=== PATIENT | male | born 1930 | race Caucasian/White ===

== ENCOUNTER 2017-03-03 09:34 | Inpatient (IN) | payer OTHER ==
[~2017-03-03] VITALS: Ht 175.3 cm; Wt 90.0 kg
[2017-03-03 11:03] LABS: HEMATOCRIT 38.1 % (38.0-50.0); MCH 30.7 PG (29.0-34.0); MCHC 33.6 G/DL (30.0-36.0); MCV 91.4 FL (86-99); MEAN PLAT.VOLUME 11.4 uM^3 (9.0-12.4); PLATELET COUNT 196 K/uL (156-360); RBC DIS.WIDTH-CV 13.3 % (11.8-14.6); RBC DIS.WIDTH-SD 45.1 % (39-53); RED BLOOD COUNT 4.17 M/uL (4.00-5.50); WHITE BLOOD COUNT 6.8 K/uL (4.1-10.2)
[2017-03-03 11:14] LABS: CHLORIDE 100 mEq/L (99-109); POTASSIUM 4.4 mEq/L (3.7-5.4); SODIUM 133 mEq/L (136-147)
[2017-03-03 11:16] LABS: GLUCOSE 103 mg/dL (70-99)
[2017-03-03 11:17] LABS: ANION GAP 12 MEQ/L (2-14)
[2017-03-03 11:20] LABS: GFR ESTIMATE (CALCULATED) > 59 mL/min/
[2017-03-03 11:21] LABS: UREA NITROGEN (BUN) 26 mg/dL (9-23)
[2017-03-03 11:24] LABS: TROP-I INTERPRETATION NEGATIVE; TROPONIN-I 0.03 ng/mL (0.0-0.30)
[2017-03-03 13:04] LABS: CARBON DIOXIDE (BICARBONATE) 30.5 MEQ/L (20-31)
[2017-03-03 14:09] VITALS: BP 131/67
[2017-03-03] MEDS ORDERED: LISINOPRIL40 MG PO (15:07)
[2017-03-03] MEDS ORDERED: SIMVASTATIN40 MG PO (15:08)
[2017-03-03 15:33] VITALS: BP 110/57
[2017-03-03 18:50] LABS: TROP-I INTERPRETATION NEGATIVE; TROPONIN-I 0.04 ng/mL (0.0-0.30)
[2017-03-03 21:03] VITALS: BP 104/61
[2017-03-03 22:56] LABS: ADD MIUA? NO; BILIRUBIN NEGATIVE; BLOOD NEGATIVE; COLOR YELLOW ((YELLOW)); GLUCOSE (STRIP) NEGATIVE; KETONES NEGATIVE; LEUKOCYTES NEGATIVE; NITRITE NEGATIVE; PROTEIN (STRIP) NEGATIVE; SPECIFIC GRAVITY 1.019 (1.000-1.030)
[2017-03-03 23:00] LABS: UCUL ADDED? NO
[2017-03-04] VITALS (9 sets, daily range): BP systolic 90–113; BP diastolic 51–68
[2017-03-04 01:04] LABS: TROP-I INTERPRETATION NEGATIVE; TROPONIN-I 0.03 ng/mL (0.0-0.30)
[2017-03-04 06:57] LABS: ANION GAP 12 MEQ/L (2-14); CHLORIDE 95 MEQ/L (99-109); GFR ESTIMATE (CALCULATED) > 59 mL/min/; GLUCOSE 97 mg/dL (70-99); POTASSIUM 4.3 MEQ/L (3.7-5.4); SAMPLE HEMOLYSIS CHECK 0; SAMPLE ICTERIC CHECK 0; SAMPLE LIPEMIA CHECK 0; SODIUM 134 MEQ/L (136-147); UREA NITROGEN (BUN) 24 mg/dL (9-23)
[2017-03-04] MEDS ORDERED: DAILY VITE1 EAC1 PO (13:12)
[2017-03-04] MEDS ORDERED: ALEVE220 MG PO (13:13)
[2017-03-04 16:07] LABS: CREATINE KINASE 242 IU/L (1-294)
[2017-03-05] VITALS (7 sets, daily range): BP systolic 102–166; BP diastolic 55–75
[2017-03-05 07:11] LABS: BASOPHIL COUNT 0.1 K/uL (0-0.1); EOSINOPHIL (%) 3.5 % (0-5); EOSINOPHIL COUNT 0.3 K/uL (0-0.3); HEMATOCRIT 36.2 % (38.0-50.0); IMMATURE GRANULOCYTE (%) 4.5 % (0.0-0.7); IMMATURE GRANULOCYTE COUNT 0.4 K/uL; INSTRUMENT ABS NEUTROPHIL CT 4.7 K/uL; LYMPHOCYTE COUNT 1.7 K/uL (1.0-2.8); MCH 30.6 PG (29.0-34.0); MCHC 32.9 G/DL (30.0-36.0); MCV 93.1 FL (86-99); MEAN PLAT.VOLUME 11.4 uM^3 (9.0-12.4); MONOCYTE (%) 15.7 % (3-12); MONOCYTE COUNT 1.3 K/uL (0-0.8); NEUTROPHIL (%) 55.7 % (45-76); NEUTROPHIL COUNT 4.7 K/uL (1.8-6.4); RBC DIS.WIDTH-CV 13.2 % (11.8-14.6); RBC DIS.WIDTH-SD 45.2 % (39-53); RED BLOOD COUNT 3.89 M/uL (4.00-5.50); WHITE BLOOD COUNT 8.5 K/uL (4.1-10.2)
[2017-03-05 07:14] LABS: PLATELET COUNT 271 K/uL (156-360)
[2017-03-05 07:24] LABS: ALKALINE PHOSPHATASE 74 IU/L (3-129); ANION GAP 10 MEQ/L (2-14); CHLORIDE 94 MEQ/L (99-109); GFR ESTIMATE (CALCULATED) > 59 mL/min/; GLUCOSE 89 mg/dL (70-99); POTASSIUM 4.2 MEQ/L (3.7-5.4); SAMPLE HEMOLYSIS CHECK 0; SAMPLE ICTERIC CHECK 0; SAMPLE LIPEMIA CHECK 0; SODIUM 133 MEQ/L (136-147); TOTAL BILIRUBIN 0.6 MG/DL (0.0-1.0); UREA NITROGEN (BUN) 29 mg/dL (9-23)
[2017-03-06 04:13] VITALS: BP 129/66
[2017-03-06 08:05] VITALS: BP 109/59
[2017-03-06 08:17] LABS: MCH 30.2 PG (29.0-34.0); MCHC 32.6 G/DL (30.0-36.0); MCV 92.5 FL (86-99); MEAN PLAT.VOLUME 10.9 uM^3 (9.0-12.4); PLATELET COUNT 349 K/uL (156-360); RBC DIS.WIDTH-CV 13.1 % (11.8-14.6); RBC DIS.WIDTH-SD 44.6 % (39-53); RED BLOOD COUNT 4.11 M/uL (4.00-5.50); WHITE BLOOD COUNT 10.1 K/uL (4.1-10.2)
[2017-03-06 08:46] LABS: ALKALINE PHOSPHATASE 76 IU/L (3-129); ANION GAP 9 MEQ/L (2-14); CHLORIDE 98 MEQ/L (99-109); DIRECT BILIRUBIN 0.1 mg/dL (0.0-0.3); GFR ESTIMATE (CALCULATED) > 59 mL/min/; GLUCOSE 95 mg/dL (70-99); POTASSIUM 4.9 MEQ/L (3.7-5.4); SAMPLE HEMOLYSIS CHECK 1; SAMPLE ICTERIC CHECK 0; SAMPLE LIPEMIA CHECK 0; SODIUM 135 MEQ/L (136-147); TOTAL BILIRUBIN 0.8 MG/DL (0.0-1.0); UREA NITROGEN (BUN) 26 mg/dL (9-23)
[2017-03-06 12:10] VITALS: BP 122/62
[2017-03-06 17:20] VITALS: BP 110/60
[2017-03-06 19:20] VITALS: BP 113/60
[2017-03-06 23:19] VITALS: BP 102/55
[2017-03-07 03:28] VITALS: BP 111/59
[2017-03-07 06:06] LABS: HEMATOCRIT 36.5 % (38.0-50.0); MCH 30.3 PG (29.0-34.0); MCHC 32.6 G/DL (30.0-36.0); MCV 92.9 FL (86-99); MEAN PLAT.VOLUME 10.5 uM^3 (9.0-12.4); PLATELET COUNT 371 K/uL (156-360); RBC DIS.WIDTH-CV 13.1 % (11.8-14.6); RBC DIS.WIDTH-SD 44.8 % (39-53); RED BLOOD COUNT 3.93 M/uL (4.00-5.50); WHITE BLOOD COUNT 11.1 K/uL (4.1-10.2)
[2017-03-07 06:32] LABS: ALKALINE PHOSPHATASE 73 IU/L (3-129); ANION GAP 9 MEQ/L (2-14); CHLORIDE 96 MEQ/L (99-109); DIRECT BILIRUBIN 0.2 mg/dL (0.0-0.3); GFR ESTIMATE (CALCULATED) > 59 mL/min/; GLUCOSE 97 mg/dL (70-99); POTASSIUM 4.9 MEQ/L (3.7-5.4); SAMPLE HEMOLYSIS CHECK 0; SAMPLE ICTERIC CHECK 0; SAMPLE LIPEMIA CHECK 0; SODIUM 134 MEQ/L (136-147); TOTAL BILIRUBIN 0.7 MG/DL (0.0-1.0); UREA NITROGEN (BUN) 24 mg/dL (9-23)
[2017-03-07 07:47] VITALS: BP 100/58
[2017-03-07 11:21] VITALS: BP 130/65
[2017-03-07 15:36] VITALS: BP 119/61
[2017-03-07 19:04] VITALS: BP 119/59
[2017-03-07 23:18] VITALS: BP 103/58
[2017-03-08 03:58] VITALS: BP 114/59
[2017-03-08 06:30] LABS: HEMATOCRIT 38.1 % (38.0-50.0); MCH 30.3 PG (29.0-34.0); MCHC 32.8 G/DL (30.0-36.0); MCV 92.3 FL (86-99); MEAN PLAT.VOLUME 10.2 uM^3 (9.0-12.4); PLATELET COUNT 446 K/uL (156-360); RBC DIS.WIDTH-SD 43.8 % (39-53); RED BLOOD COUNT 4.13 M/uL (4.00-5.50); WHITE BLOOD COUNT 10.5 K/uL (4.1-10.2)
[2017-03-08 06:51] LABS: ANION GAP 11 MEQ/L (2-14); CHLORIDE 96 MEQ/L (99-109); GFR ESTIMATE (CALCULATED) > 59 mL/min/; GLUCOSE 112 mg/dL (70-99); POTASSIUM 4.8 MEQ/L (3.7-5.4); SAMPLE HEMOLYSIS CHECK 0; SAMPLE ICTERIC CHECK 0; SAMPLE LIPEMIA CHECK 0; SODIUM 132 MEQ/L (136-147); UREA NITROGEN (BUN) 18 mg/dL (9-23)
[2017-03-08 08:38] VITALS: BP 127/76
[2017-03-08 11:53] VITALS: BP 122/63
[2017-03-08 17:09] VITALS: BP 102/53
[2017-03-08 19:56] VITALS: BP 97/56
[2017-03-09 00:11] VITALS: BP 109/57
[2017-03-09 04:36] VITALS: BP 108/58
[2017-03-09 07:51] VITALS: BP 124/58
[2017-03-09 09:26] LABS: HEMATOCRIT 39.2 % (38.0-50.0); MCH 31.3 PG (29.0-34.0); MCHC 33.2 G/DL (30.0-36.0); MCV 94.5 FL (86-99); MEAN PLAT.VOLUME 9.9 uM^3 (9.0-12.4); PLATELET COUNT 495 K/uL (156-360); RBC DIS.WIDTH-CV 13.2 % (11.8-14.6); RBC DIS.WIDTH-SD 45.6 % (39-53); RED BLOOD COUNT 4.15 M/uL (4.00-5.50)
[2017-03-09 09:53] LABS: ANION GAP 9 MEQ/L (2-14); CHLORIDE 95 MEQ/L (99-109); GFR ESTIMATE (CALCULATED) > 59 mL/min/; POTASSIUM 4.1 MEQ/L (3.7-5.4); SAMPLE HEMOLYSIS CHECK 0; SAMPLE ICTERIC CHECK 0; SAMPLE LIPEMIA CHECK 0; SODIUM 133 MEQ/L (136-147); UREA NITROGEN (BUN) 19 mg/dL (9-23)
[2017-03-09 09:54] LABS: GLUCOSE 185 mg/dL (70-99)
[2017-03-09 15:27] VITALS: BP 121/57
[2017-03-09 19:36] VITALS: BP 109/66
[2017-03-10 00:06] VITALS: BP 101/56
[2017-03-10 03:35] VITALS: BP 113/60
[2017-03-10 07:30] VITALS: BP 132/68
[2017-03-10 09:13] LABS: HEMATOCRIT 38.1 % (38.0-50.0); MCH 30.4 PG (29.0-34.0); MCHC 32.8 G/DL (30.0-36.0); MCV 92.7 FL (86-99); MEAN PLAT.VOLUME 9.7 uM^3 (9.0-12.4); PLATELET COUNT 552 K/uL (156-360); RBC DIS.WIDTH-SD 44.2 % (39-53); RED BLOOD COUNT 4.11 M/uL (4.00-5.50)
[2017-03-10 09:59] LABS: ANION GAP 10 MEQ/L (2-14); CHLORIDE 96 MEQ/L (99-109); GFR ESTIMATE (CALCULATED) > 59 mL/min/; GLUCOSE 150 mg/dL (70-99); SAMPLE HEMOLYSIS CHECK 0; SAMPLE ICTERIC CHECK 0; SAMPLE LIPEMIA CHECK 0; SODIUM 135 MEQ/L (136-147); UREA NITROGEN (BUN) 18 mg/dL (9-23)
[2017-03-10 11:39] VITALS: BP 102/55
[2017-03-10 16:12] VITALS: BP 110/65
[2017-03-10 20:05] VITALS: BP 105/64
[2017-03-11] VITALS (7 sets, daily range): BP systolic 106–125; BP diastolic 54–71
[2017-03-12 05:46] LABS: ANION GAP 8 MEQ/L (2-14); CHLORIDE 96 MEQ/L (99-109); GFR ESTIMATE (CALCULATED) > 59 mL/min/; POTASSIUM 4.9 MEQ/L (3.7-5.4); SAMPLE HEMOLYSIS CHECK 0; SAMPLE ICTERIC CHECK 0; SAMPLE LIPEMIA CHECK 0; SODIUM 135 MEQ/L (136-147); UREA NITROGEN (BUN) 17 mg/dL (9-23)
[2017-03-12 05:48] LABS: GLUCOSE 99 mg/dL (70-99)
[2017-03-12 08:45] VITALS: BP 114/92
[2017-03-12] MEDS ORDERED: LISINOPRIL2.5 MG PO (09:28)
[2017-03-12] MEDS ORDERED: CARVEDILOL3.125 MG PO (09:28)
[2017-03-12] MEDS ORDERED: FUROSEMIDE40 MG PO (09:28)
[2017-03-12 11:39] VITALS: BP 108/60
== END 2017-03-12 15:00 | DRG 292 ==
LOC: EME → EDBD 09:34 → EME 09:34 → 3EAST 11:43 → EDOF 11:43 → ENRESERV 11:44 → 3EAST 13:30
PROVIDERS: Emergency Medicine; Hospitalist; Internal Medicine; Physician Assistant
DX: I11.0 Hypertensive heart disease with heart failure (principal); I50.23 Acute on chronic systolic (congestive) heart failure; E87.1 Hypo-osmolality and hyponatremia; E78.5 Hyperlipidemia, unspecified; F03.90 Unspecified dementia, unspecified severity, without behavioral disturbance, psychotic disturbance, mood disturbance, and anxiety; K21.9 Gastro-esophageal reflux disease without esophagitis; K44.9 Diaphragmatic hernia without obstruction or gangrene; N40.0 Benign prostatic hyperplasia without lower urinary tract symptoms; Z87.891 Personal history of nicotine dependence; Z95.0 Presence of cardiac pacemaker
CPT/HCPCS: 71020; 80048; 80053; 80076; 81003; 82550; 82803; 83605; 83880; 84484; 85025; 85027; 87040; 93005; 93306; 94640 76; 94799; 97530 GO; 99281; 99285; J1650; J1940